=== PATIENT | female | born 1975 | race Caucasian/White ===

== ENCOUNTER 2021-11-24 10:34 | Emergency (ER) | payer OTHER, SELFPAY ==
[2021-11-24 10:46] VITALS: BP 124/94; PULSE 90; RESP 18; TEMP 36.5; O2SAT 100
--- NOTE | 2021-11-24 10:55 | ED.HA ---
HPI - Headache General Chief Complaint: Headache Stated Complaint: Dizziness,Headache Time Seen by Provider: 11/24/21 10:57 History of Present Illness HPI Narrative: Maryana Vasquez is a 46 yo female with a PMH of mifraine, beneign chest wall tumor, comes to express care with a headache. She was diagnosed with COVID on the after developing symptoms on the and has been taking a prescription of prednisone she has been taking Zyrtec she is taken Tylenol and she has a prescription for meclizine for dizziness. She feels congested and wants further evaluation of her headache Related Data Home Medications Medication Instructions Recorded Confirmed bupropion HCl 150 mg 24 hr tablet, 1 tablet PO DAILY 11/24/21 11/24/21 extended release cetirizine 10 mg tablet (Zyrtec) 10 mg PO DAILY 11/24/21 11/24/21 norethindrone 1 mg-ethinyl 1 tablet PO DAILY 11/24/21 11/24/21 estradiol 20 mcg (24)-iron 75 mg (4) tablet (Blisovi 24 Fe) Allergies Allergy/AdvReac Type Severity Reaction Status Date / Time adhesive tape AdvReac Mild Rash Verified 11/24/21 11:05 Review of Systems Review of Systems: CONSTITUTIONAL: Denies fever, chills, sweats. EYES: Denies visual changes, redness, discharge. ENT: Denies rhinorrhea, has congestion, sore throat, otalgia. CARDIOVASCULAR: Denies chest pain, palpitations, edema. RESPIRATORY: Denies dyspnea, wheezing, cough GASTROINTESTINAL: Denies abdominal pain, nausea, vomiting, diarrhea. GENITOURINARY: Denies dysuria, hematuria, abnormal discharge SKIN: Denies rash or itching. NEUROLOGIC: Denies numbness, or focal weakness. PSYCHIATRIC: Denies anxiety or depression. Complaining of headache, intermittent vertigo PMFSH Past Medical History Medical History Benign neoplasm of chest wall Migraine Social History Social History (Updated 11/24/21 @ 11:01 by Theodora Nicole CNP) Smoking status: Never smoker Comments At time of signature, I agree with nursing past medical, surgical, social and family history. There is no relevant family history pertinent to the presenting complaint. Exam Narrative: GENERAL: This is a well-nourished, well-developed patient, in mild distress. Very frustrated at the roller coaster symptoms she has HEAD: normocephalic, atraumatic. EYES: Sclera clear/white. Vision is grossly intact. EARS: External ears normal, auditory canals mild erythema and small amount of cerumen and without drainage, TMs normal without perforation. Hearing grossly intact. NOSE: External nose normal without nasal discharge, nares without redness, no rhinorrhea. THROAT: Mucous membranes moist, posterior pharynx pink NECK: Neck supple, non-tender CARDIOVASCULAR: Regular rate and rhythm without murmurs, gallops, or rubs. RESPIRATORY: Clear to auscultation. Breath sounds equal bilaterally. No wheezes, rales, or rhonchi. GASTROINTESTINAL: Not done SKIN: warm, intact with no suspicious lesions or rash, good texture and turgor. NEURO: awake, alert, and oriented to person, place and time. There were no obvious focal neurologic abnormalities. Steady gait EXTREMITIES: Normal range of motion. BACK: Nontender without deformity Course Course Emergency Course: Patient had COVID started on the and she saw her primary care physician on the who got medications and steroids. She is here because she has headache and is continued to have dizziness and congestion Given Toradol 60 for her headache Put on a regular rotating basis of Flonase continue Zyrtec Sudafed and taking Tylenol or ibuprofen every 6 hours she needs to rest and hydrate well Level of Care: Express Care Visit Vital Signs Vital signs: Vital Signs Temperature 97.7 F 11/24/21 10:46 Pulse Rate 90 11/24/21 10:46 Respiratory Rate 18 11/24/21 10:46 Blood Pressure 124/94 H 11/24/21 10:46 Pulse Oximetry 100 11/24/21 10:46 Oxygen Delivery Room Air 11/24/21 10:46
[2021-11-24] MEDS: KETOROLAC (*BKC) 60 MG/2 ML VIAL IM (11:24)
== END 2021-11-24 11:33 | disposition home or self-care (01) ==
PROVIDERS: Emergency Provider Nurse Practitioner; PCP Family Medicine
DX: R53.82 Chronic fatigue, unspecified (principal); U09.9 Post COVID-19 condition, unspecified; G44.52 New daily persistent headache (NDPH)
CPT/HCPCS: 96372; 99203; G0463; J1885